=== PATIENT | female | born 1960 | race American Indian/Alaskan Native ===

== ENCOUNTER 2017-03-16 16:24 | Inpatient (IN) | payer MEDICAID ==
[2017-03-16 16:37] VITALS: BMI 31.7
[2017-03-16] MEDS ORDERED: Sodium Chloride 0.9% 1,000 ML IV ONE (17:32)
[2017-03-16 17:49] LABS: BASO # 0.1 K/uL (0.0-0.2); BASO % 0.3 % (0.0-2.0); HEMATOCRIT 40.8 % (34.0-47.0); LYMPH # 0.7 K/uL (1.0-4.3); MEAN CELL VOLUME 84.2 fL (81.0-99.0); MEAN CORPUSCULAR HEMOGLOBIN 27.7 pg (27.0-31.0); MEAN CORPUSCULAR HGB CONC 32.9 g/dL (33.0-37.0); MONO # 0.7 K/uL (0.0-0.8); PLATELET COUNT 277 K/uL (130-400); RED CELL DISTRIBUTION WIDTH 13.8 % (11.5-14.5); WHITE BLOOD COUNT 17.7 K/uL (4.8-10.8)
[2017-03-16 17:57] LABS: CHLORIDE 105 mmol/L (98-107); POTASSIUM 3.6 mmol/L (3.6-5.2); SODIUM 143 mmol/L (132-148)
[2017-03-16 17:59] LABS: AST/SGOT 27 U/L (14-36); BILIRUBIN,TOTAL 0.6 mg/dL (0.2-1.3); CARBON DIOXIDE 24 mmol/L (22-30); GFR AFRICAN-AMERICAN > 60
[2017-03-16 18:00] LABS: ALB/GLOB RATIO 1.1 (1.0-2.1); ALKALINE PHOSPHATASE 97 U/L (38-126); ALT/SGPT 38 U/L (9-52); BLOOD UREA NITROGEN 9 mg/dL (7-17); CALCIUM 9.8 mg/dl (8.6-10.4); GLUCOSE,RANDOM 102 mg/dL (65-105); TOTAL PROTEIN 8.7 g/dL (6.3-8.3)
[2017-03-16] MEDS ORDERED: Iohexol 240 (50 ml) PO ONE (18:02)
[2017-03-16] MEDS ORDERED: Iohexol 240 (50 ml) ONE (18:09)
--- NOTE | 2017-03-16 18:29 | C.PDOC ---
History Of Present Illness 56 year old female with no past medical history aside from a presents to the ED with complaints of diffuse cramping, sharp, persistent, mid-abdominal pain that began earlier today following taking a shower. Patient notes associated nausea and vomiting that are dry heaves with sputum production since she has not eaten. Patient states she went to the bathroom prior to showering and had a normal bowel movement. Since the shower she has had three bowel movements but denies diarrhea. She denies fever, chills, or other complaints at this time. Time Seen by Provider: 03/16/17 17:28 Chief Complaint (Nursing): Abdominal Pain History Per: Patient History/Exam Limitations: no limitations Onset/Duration Of Symptoms: Hrs, Sudden Onset, Persistent Current Symptoms Are (Timing): Still Present Location Of Pain/Discomfort: Diffuse Radiation Of Pain To:: None Quality Of Discomfort: Sharp, Cramping Associated Symptoms: Nausea, Vomiting. denies: Fever, Chills, Diarrhea, Constipation, Urinary Symptoms Recent travel outside of the [place]: No Abnormal Vaginal Bleeding: No Past Medical History Reviewed: Historical Data, Nursing Documentation, Vital Signs Vital Signs: Last Vital Signs Temp 99 F 03/16/17 16:37 Pulse 85 03/16/17 20:40 Resp 18 03/16/17 20:40 BP 135/63 03/16/17 20:40 Pulse Ox 100 03/16/17 21:05 Family History: States: Unknown Family Hx - Social History Hx Tobacco Use: No Hx Alcohol Use: No Hx Substance Use: No - Immunization History Hx Tetanus Toxoid Vaccination: No Hx Influenza Vaccination: Yes Hx Pneumococcal Vaccination: Yes Review Of Systems Constitutional: Negative for: Fever, Chills Cardiovascular: Negative for: Chest Pain, Palpitations Respiratory: Negative for: Cough, Shortness of Breath Gastrointestinal: Positive for: Nausea, Vomiting, Abdominal Pain. Negative for : Diarrhea, Constipation Physical Exam - Physical Exam Appears: Non-toxic, Other (Patient appears uncomfortable ) Skin: Warm, Dry Head: Atraumatic Eye(s): bilateral: Normal Inspection Oral Mucosa: Moist Neck: Supple Chest: Symmetrical, No Deformity Cardiovascular: Rhythm Regular, No Murmur Respiratory: Normal Breath Sounds, No Rales, No Rhonchi, No Wheezing Gastrointestinal/Abdominal: Bowel Sounds (tympanic ), Tenderness (diffusely tender), Distention, Other (no rigidity ) Neurological/Psych: Oriented x3 ED Course And Treatment - Laboratory Results Result Diagrams: 03/16/17 17:45 03/16/17 17:45 Lab Interpretation: Abnormal (WBC 17.7 with left shift) ECG: Interpreted By Me, Viewed By Me ECG Rhythm: Sinus Rhythm Rate From EC O2 Sat by Pulse Oximetry: 100 (room air ) Pulse Ox Interpretation: Normal - CT Scan/US Abdomen Pelvis CT Other Rad Studies (CT/US): Read By Radiologist, Radiology Report Reviewed CT/US Interpretation: EXAM: CT Abdomen and Pelvis With Intravenous Contrast. EXAM DATE/TIME: Exam ordered 03/16/2017 6:01 PM. CLINICAL HISTORY: 56 years old, female; Pain; Abdominal pain; Generalized. TECHNIQUE: Axial computed tomography images of the abdomen and pelvis with intravenous contrast. All CT. scans at this facility use one or more dose reduction techniques, viz.: automated exposure control;. ma/kV adjustment per patient size (including targeted exams where dose is matched to indication; i.e. head); or iterative reconstruction technique. Coronal and sagittal reformatted images were created and reviewed. CONTRAST: 100 mL of omnipaque 350 administered intravenously. COMPARISON:No relevant prior studies available. FINDINGS: Lower thorax: . ABDOMEN: Liver: 1 cm low density lesion is noted in the medial segment of the left lobe of the liver (series 3. image 52). Gallbladder and bile ducts: Unremarkable. No calcified stones. No ductal dilation. Pancreas: Unremarkable. No mass. No ductal dilation. Spleen: Unremarkable. No splenomegaly. Adrenals: Unremarkable. No mass. Kidneys and ureters: Unremarkable. No solid mass. No hydronephrosis. Stomach and bowel: There is scattered colonic diverticula. No obstruction. No mucosal thickening. Appendix: The appendix is enlarged. There is periappendiceal inflammation noted within the. surrounding fat. PELVIS: Bladder: Unremarkable. No mass. Reproductive: The uterus is absent. The ovaries are not seen as separate structures. ABDOMEN and PELVIS: Intraperitoneal space: Small amount of free fluid is seen in the pelvis. No free air. Bones/joints: There is a levoscoliosis of the lumbar spine with secondary degenerative changes. No. acute fracture. No dislocation. Soft tissues: There is a healed infraumbilical midline abdominal incision. A small amount of edema. is noted within the mesenteric fat. Vasculature: There are 2 left renal arteries. No abdominal aortic aneurysm. Lymph nodes: Unremarkable. No enlarged lymph nodes. IMPRESSION: 1. Acute appendicitis. 2. Scattered colonic diverticula. 3. 1 cm low density lesion within the medial segment left lobe liver not fully characterized. MRI might be helpful. Progress Note: Abdomen pelvis CT, obstructive series, UA, and CBC were ordered. Patient was given Morphine, Zofran, Iohexol, and IV fluids. Reevaluation Time: 21:20 Reassessment Condition: Improved - Physician Consult Information Time Consulting Physician Contacted: 21:20 Physician Contacted: Harmony Mar Outcome Of Conversation: Patient to be admitted for surgery for acute appendicitis. Disposition - Disposition Disposition: HOSPITALIZED Disposition Time: 21:20 Condition: STABLE - POA Present On Arrival: None - Clinical Impression Clinical Impression: Acute appendicitis - Scribe Statement The provider has reviewed the documentation as recorded by the Chaibmiky Tavares All medical record entries made by the Man were at my direction and personally dictated by me. I have reviewed the chart and agree that the record accurately reflects my personal performance of the history, physical exam, medical decision making, and the department course for this patient. I have also personally directed, reviewed, and agree with the discharge instructions and disposition.
[2017-03-16] MEDS ORDERED: Iohexol 350mg/ml 100 ML ONE (18:41)
[2017-03-16 19:11] LABS: RBC URINE 2 /hpf (0-3); URINE BACTERIA RARE (<OCC); URINE BILIRUBIN NEGATIVE (NEGATIVE); URINE BLOOD 1+ (NEGATIVE); URINE COLOR Yellow (YELLOW); URINE GLUCOSE (UA) NORMAL (Normal); URINE KETONE 2+ mg/dL (NEGATIVE); URINE LEUKOCYTE ESTERASE NEG Leu/uL (Negative); URINE PROTEIN 1+ mg/dL (NEGATIVE); URINE UROBILINOGEN NORMAL mg/dL (0.2-1.0); WBC URINE 1 /hpf (0-5)
[2017-03-16 19:15] LABS: NEUTROPHIL 96 % (50-75); TOTAL CELLS COUNTED 100
--- NOTE | 2017-03-16 20:45 | CT ---
EXAM: CT Abdomen and Pelvis With Intravenous Contrast EXAM DATE/TIME: Exam ordered 03/16/2017 6:01 PM CLINICAL HISTORY: 56 years old, female; Pain; Abdominal pain; Generalized TECHNIQUE: Axial computed tomography images of the abdomen and pelvis with intravenous contrast. All CT scans at this facility use one or more dose reduction techniques, viz.: automated exposure control; ma/kV adjustment per patient size (including targeted exams where dose is matched to indication; i.e. head); or iterative reconstruction technique. Coronal and sagittal reformatted images were created and reviewed. CONTRAST: 100 mL of omnipaque 350 administered intravenously. COMPARISON: No relevant prior studies available. FINDINGS: Lower thorax: . ABDOMEN: Liver: 1 cm low density lesion is noted in the medial segment of the left lobe of the liver (series 3 image 52). Gallbladder and bile ducts: Unremarkable. No calcified stones. No ductal dilation. Pancreas: Unremarkable. No mass. No ductal dilation. Spleen: Unremarkable. No splenomegaly. Adrenals: Unremarkable. No mass. Kidneys and ureters: Unremarkable. No solid mass. No hydronephrosis. Stomach and bowel: There is scattered colonic diverticula. No obstruction. No mucosal thickening. Appendix: The appendix is enlarged. There is periappendiceal inflammation noted within the surrounding fat. PELVIS: Bladder: Unremarkable. No mass. Reproductive: The uterus is absent. The ovaries are not seen as separate structures. ABDOMEN and PELVIS: Intraperitoneal space: Small amount of free fluid is seen in the pelvis. No free air. Bones/joints: There is a levoscoliosis of the lumbar spine with secondary degenerative changes. No acute fracture. No dislocation. Soft tissues: There is a healed infraumbilical midline abdominal incision. A small amount of edema is noted within the mesenteric fat. Vasculature: There are 2 left renal arteries. No abdominal aortic aneurysm. Lymph nodes: Unremarkable. No enlarged lymph nodes. IMPRESSION: 1. Acute appendicitis 2. Scattered colonic diverticula. 3. 1 cm low density lesion within the medial segment left lobe liver not fully characterized. MRI might be helpful.
--- NOTE | 2017-03-16 22:34 | CP.PCM.HP ---
History of Present Illness - History of Present Illness History of Present Illness: H&P Surgery- Dr. Mar 56F presented to [facility] ED with worsening abdominal pain originating in periumblical region migrating to RLQ that started this morning. Pain has been continuous with minimal relief. Associated nausea and NBNB vomiting. Denies F/C CP/SOB Diarrhea, numbness or tingling in the extremities. PMH: H.Pylori PSH: , Hysterectomy, colonoscopy, egd ALL: NKDA SocialHx: occasional etoh, recreational cocaine use. last dose 2 weeks ago. Denies tobacco, marijuana or other illicit drug use. PMD: Dr. Neena Cancino Present on Admission - Present on Admission Any Indicators Present on Admission: No Review of Systems - Review of Systems All systems: reviewed and no additional remarkable complaints except - Constitutional Constitutional: As Per HPI Past Patient History - Infectious Disease Hx of Infectious Diseases: None - Past Social History Smoking Status: Never Smoked - GASTROINTESTINAL Hx Gastroesophageal Reflux: Yes - PSYCHIATRIC Hx Substance Use: No - SURGICAL HISTORY Hx Surgeries: Yes Hx Section: Yes (20 yrs. ago) Hx Hysterectomy: Yes (5 yrs. ago) - ANESTHESIA Hx Anesthesia: Yes Hx Anesthesia Reactions: No Meds Allergies/Adverse Reactions: Allergies Allergy/AdvReac Type Severity Reaction Status Date / Time No Known Allergies Allergy Verified 03/16/17 16:36 Physical Exam - Constitutional Appears: Non-toxic, No Acute Distress - Head Exam Head Exam: ATRAUMATIC - Eye Exam Eye Exam: EOMI - ENT Exam ENT Exam: Mucous Membranes Moist - Respiratory Exam Respiratory Exam: NORMAL BREATHING PATTERN. absent: Accessory Muscle Use, Rales , Rhonchi, Wheezes - Cardiovascular Exam Cardiovascular Exam: +S1, +S2 - GI/Abdominal Exam GI & Abdominal Exam: Distended, Guarding, Rebound, Soft, Tenderness. absent: Firm, Hernia, Rigid Additional comments: +mcburney, rovsing, rebound, psoas - Extremities Exam Extremities exam: Negative for: calf tenderness, pedal edema - Neurological Exam Neurological exam: Alert, Oriented x3 - Skin Skin Exam: Normal Color, Warm Results - Vital Signs Recent Vital Signs: Last Vital Signs Temp 99 F 03/16/17 16:37 Pulse 85 03/16/17 20:40 Resp 18 03/16/17 20:40 BP 135/63 03/16/17 20:40 Pulse Ox 100 03/16/17 21:20 - Labs Result Diagrams: 03/16/17 17:45 03/16/17 17:45 Assessment & Plan - Assessment and Plan (Free Text) Assessment: 56F Acute Appendicitis Plan: - NPO - GI/DVTppx - IVF/Abx - pain control - AM labs - Plan for OR tomorrow - further recs per Dr. Zaid Smith PGY1
[2017-03-16] MEDS: Lactated Ringer's 1,000 ML IV SCH (22:44)
[2017-03-16] MEDS: Piperacillin/Tazobact 3.375 GM in Sodium Chloride 100 ML IVPB SCH (22:55)
[2017-03-17] MEDS: Piperacillin/Tazobact 3.375 GM in Sodium Chloride 100 ML IVPB SCH ×4 (03:46→21:20)
[2017-03-17] MEDS: Lactated Ringer's 1,000 ML IV SCH ×3 (05:45→22:05)
[2017-03-17 07:42] LABS: INR 1.2
[2017-03-17] MEDS ORDERED: Propofol 10 mg/ml Inj (20 ML) ONE (08:20)
[2017-03-17] MEDS ORDERED: Midazolam 2 MG/2 ML VIAL ONE (08:20)
--- NOTE | 2017-03-17 08:38 | RAD ---
PROCEDURE: Radiographs of the chest and abdomen (obstructive series) HISTORY: abd pain COMPARISON: Comparison chest 05/17/2016 TECHNIQUE: AP radiograph of the chest, with upright and supine radiographs of the abdomen. FINDINGS: CHEST: Lungs: . No consolidation Cardiovascular: Cardiomegaly -similar Symmetrical central pulmonary venous congestion similar to slightly increased. Pleura: No pleural fluid. No pneumothorax. Other findings: None. ABDOMEN AND PELVIS: Bowel: Unremarkable bowel gas pattern. No evidence of mechanical obstruction. Free air: None. Bones: Thoracolumbar dextroscoliosis. Right L4-5 marginal osteophytes Other findings: None. IMPRESSION: No pulmonary infiltrate. Chronic appearing mild pulmonary venous congestion -similar cardiomegaly No evidence of mechanical bowel obstruction.
[2017-03-17] MEDS ORDERED: Lactated Ringer's 1,000 ML IV ONE ×2 (08:40→09:55)
[2017-03-17] MEDS ORDERED: Succinylcholine Chloride 20 mg/ml Syr (5 ml) IV ONE (08:56)
[2017-03-17] MEDS ORDERED: Rocuronium 10 mg/ml (5 ml) ONE (08:56)
[2017-03-17] MEDS ORDERED: Lidocaine Hydrochloride 5 ML INJ ONE (08:56)
--- NOTE | 2017-03-17 10:10 | PCM.SURG1 ---
Surgeon's Initial Post Op Note - Surgeon's Notes Surgeon: Dr. Mar Electromagnet Crane Operator: PGY1 Pre-Operative Diagnosis: Acute Appendicitis Operative Findings: Iflammed appendix, phlegmon, multiple adhesions to the abdominal wall Post-Operative Diagnosis: Acute Appendectomy Operation Performed: Laparoscopic appendectomy covert to open Specimen/Specimens Removed: appendix Estimated Blood Loss: EBL {In ML}: 25 Blood Products Given: N/A Drains Used: No Drains Date of Surgery/Procedure: 03/17/17 Time of Surgery/Procedure: 08:45
[2017-03-17] MEDS ORDERED: Oxycodone/Acetaminophen 5/325 mg Tab PO PRN (10:19)
[2017-03-17] MEDS ORDERED: HYDROmorphone 0.5 mg/0.5 ml ISec IVP PRN (10:26)
[2017-03-17] MEDS ORDERED: Morphine 4 MG/ML VIAL IVP PRN (11:19)
--- NOTE | 2017-03-17 12:32 | CARD ---
APPROVED REPORT EKG Measurement Heart [id number] <Conclusion> Normal sinus rhythm Low voltage QRS Borderline ECG
[2017-03-17 16:33] VITALS: RESP 20
[2017-03-18 01:58] VITALS: TEMP 98.1
[2017-03-18] MEDS: Piperacillin/Tazobact 3.375 GM in Sodium Chloride 100 ML IVPB SCH (03:54)
[2017-03-18] MEDS: Lactated Ringer's 1,000 ML IV SCH (06:15)
--- NOTE | 2017-03-18 07:22 | CP.PCM.PN ---
Subjective - Date & Time of Evaluation Date of Evaluation: 03/18/17 Time of Evaluation: : Objective - Vital Signs/Intake and Output Vital Signs (last 24 hours): Temp Pulse Resp BP Pulse Ox 98.1 F 72 20 126/71 96 03/18/17 04:15 03/18/17 04:15 03/18/17 04:03/18/17 04:03/18/17 04:15 - Medications Medications: Current Medications Acetaminophen (Tylenol 325mg Tab) 650 mg PO Q6 PRN PRN Reason: Pain, Mild (1-3) Famotidine (Pepcid) 20 mg IVP Q12 MIA Last Admin: 03/17/17 21:20 Dose: 20 mg Hydromorphone HCl (Dilaudid) 0.5 mg IVP Q10M PRN PRN Reason: Pain, severe (8-10) Last Admin: 03/17/17 10:39 Dose: 0.5 mg Lactated Ringer's (Lactated Ringer's) 1,000 mls @ 125 mls/hr IV .Q8H IMA Last Admin: 03/17/17 22:05 Dose: 125 mls/hr Piperacillin Sod/Tazobactam (Sod 3.375 gm/ Sodium Chloride) 100 mls @ 200 mls/ hr IVPB Q6H MIA Last Admin: 03/18/17 03:54 Dose: 200 mls/hr Morphine Sulfate (Morphine) 4 mg IVP Q4 PRN PRN Reason: Pain, severe (8-10) Last Admin: 03/17/17 18:20 Dose: 4 mg Oxycodone/Acetaminophen (Percocet 5/325 Mg Tab) 1 tab PO Q4H PRN PRN Reason: Pain, moderate (4-7) Stop: 03/20/17 10:20 - Labs Labs: PT 13.2 SECONDS (9.7-12.2) H 03/17/17 07:28 INR 1.2 03/17/17 07:28 APTT 32 SECONDS (21-34) 03/17/17 07:28
--- NOTE | 2017-03-18 07:23 | CP.PCM.DIS ---
Provider - Provider Date of Admission: 03/16/17 21:21 Attending physician: Harmony Mar MD Time Spent in preparation of Discharge (in minutes): 35 Diagnosis - Discharge Diagnosis (1) Acute appendicitis Status: Acute Comment: see hospital course Hospital Course - Lab Results Lab Results: Most Recent Lab Values WBC 17.7 K/uL (4.8-10.8) H D 03/16/17 17:45 RBC 4.85 Mil/uL (3.80-5.20) 03/16/17 17:45 Hgb 13.4 g/dL (11.0-16.0) 03/16/17 17:45 Hct 40.8 % (34.0-47.0) 03/16/17 17:45 MCV 84.2 fL (81.0-99.0) 03/16/17 17:45 MCH 27.7 pg (27.0-31.0) 03/16/17 17:45 MCHC 32.9 g/dL (33.0-37.0) L 03/16/17 17:45 RDW 13.8 % (11.5-14.5) 03/16/17 17:45 Plt Count 277 K/uL (130-400) 03/16/17 17:45 MPV 8.0 fL (7.2-11.7) 03/16/17 17:45 Neut % (Auto) 91.7 % (50.0-75.0) H 03/16/17 17:45 Lymph % (Auto) 4.0 % (20.0-40.0) L 03/16/17 17:45 [place] % (Auto) 4.0 % (0.0-10.0) 03/16/17 17:45 Eos % (Auto) 0.0 % (0.0-4.0) 03/16/17 17:45 Baso % (Auto) 0.3 % (0.0-2.0) 03/16/17 17:45 Neut # 16.2 K/uL (1.8-7.0) H 03/16/17 17:45 Lymph # 0.7 K/uL (1.0-4.3) L 03/16/17 17:45 [place] # 0.7 K/uL (0.0-0.8) 03/16/17 17:45 Eos # 0.0 K/uL (0.0-0.7) 03/16/17 17:45 Baso # 0.1 K/uL (0.0-0.2) 03/16/17 17:45 Neutrophils % (Manual) 96 % (50-75) H 03/16/17 17:45 Lymphocytes % (Manual) 2 % (20-40) L 03/16/17 17:45 Monocytes % (Manual) 2 % (0-10) 03/16/17 17:45 Platelet Estimate Normal (NORMAL) 03/16/17 17:45 PT 13.2 SECONDS (9.7-12.2) H 03/17/17 07:28 INR 1.2 03/17/17 07:28 APTT 32 SECONDS (21-34) 03/17/17 07:28 Sodium 143 mmol/L (132-148) 03/16/17 17:45 Potassium 3.6 mmol/L (3.6-5.2) 03/16/17 17:45 Chloride 105 mmol/L (98-107) 03/16/17 17:45 Carbon Dioxide 24 mmol/L (22-30) 03/16/17 17:45 Anion Gap 18 (10-20) 03/16/17 17:45 BUN 9 mg/dL (7-17) 03/16/17 17:45 Creatinine 0.8 MG/DL (0.7-1.2) 03/16/17 17:45 Est GFR ( Amer) > 60 03/16/17 17:45 Est GFR (Non-Af Amer) > 60 03/16/17 17:45 Random Glucose 102 mg/dL (65-105) 03/16/17 17:45 Calcium 9.8 mg/dl (8.6-10.4) 03/16/17 17:45 Total Bilirubin 0.6 mg/dL (0.2-1.3) 03/16/17 17:45 AST 27 U/L (14-36) 03/16/17 17:45 ALT 38 U/L (9-52) 03/16/17 17:45 Alkaline Phosphatase 97 U/L (38-126) 03/16/17 17:45 Total Protein 8.7 g/dL (6.3-8.3) H 03/16/17 17:45 Albumin 4.6 g/dL (3.5-5.0) 03/16/17 17:45 Globulin 4.1 gm/dL (2.2-3.9) H 03/16/17 17:45 Albumin/Globulin Ratio 1.1 (1.0-2.1) 03/16/17 17:45 Lipase 114 U/L (23-300) 03/16/17 17:45 Urine Color Yellow (YELLOW) 03/16/17 19:02 Urine Clarity Clear (Clear) 03/16/17 19:02 Urine pH 5.0 (5.0-8.0) 03/16/17 19:02 Ur Specific [place] 1.023 (1.003-1.030) 03/16/17 19:02 Urine Protein 1+ mg/dL (NEGATIVE) H 03/16/17 19:02 Urine Glucose (UA) Normal mg/dL (Normal) 03/16/17 19:02 Urine Ketones 2+ mg/dL (NEGATIVE) H 03/16/17 19:02 Urine Blood 1+ (NEGATIVE) H 03/16/17 19:02 Urine Nitrate Negative (NEGATIVE) 03/16/17 19:02 Urine Bilirubin Negative (NEGATIVE) 03/16/17 19: Urine Urobilinogen Normal mg/dL (0.2-1.0) 03/16/17 19:02 Ur Leukocyte Esterase Neg Norberto/uL (Negative) 03/16/17 19:02 Urine WBC (Auto) 1 /hpf (0-5) 03/16/17 19:02 Urine RBC (Auto) 2 /hpf (0-3) 03/16/17 19:02 Ur Squamous Epith Cells 2 /hpf (0-5) 03/16/17 19:02 Urine Bacteria Rare (<OCC) 03/16/17 19:02 Urine HCG, Qual Negative (NEGATIVE) 03/17/17 07:40 - Hospital Course Hospital Course: 56 F presented to [facility] ED with worsening abdominal pain originating in periumblical region migrating to RLQ that started this morning. Pain has been continuous with minimal relief. Associated nausea and non-bloody/non-bilious vomiting. Denies fever/chills, CP, SOB Diarrhea, numbness/tingling. Patient was admitted for acute appendicitis. Patient was made NPO, started on IV fluids and IV antibiotics. She was also ordered anti-emetics and analgesics. On 03/17, patient went to OR for Laparoscopic appendectomy coverted to open with ZAC. She was found to have an inflammed appendix, phlegmon, and multiple adhesions to the abdominal wall. Patient tolerated the procedure well without complications. On 03/18, patient was tolerating diet, passing flatus, and ambulating without difficulty. At that time, patient was stable for discharge as per Dr. Mar. Follow up with Dr. Mar as outpatient in 1 week. (This is a summary of the hospital course, Please refer to EMR for more details) Discharge Exam - Head Exam Head Exam: ATRAUMATIC, NORMOCEPHALIC - Eye Exam Eye Exam: Normal appearance - ENT Exam ENT Exam: Mucous Membranes Moist - Respiratory Exam Respiratory Exam: NORMAL BREATHING PATTERN - Cardiovascular Exam Cardiovascular Exam: REGULAR RHYTHM - GI/Abdominal Exam GI & Abdominal Exam: Soft. absent: Distended, Firm, Guarding, Rebound, Rigid, Tenderness Additional comments: incision sites clean, dry, and intact - Neurological Exam Neurological exam: Alert, Oriented x3 - Psychiatric Exam Psychiatric exam: Normal Affect, Normal Mood - Skin Skin Exam: Dry, Intact, Normal Color, Warm Discharge Plan - Follow Up Plan Condition: STABLE Disposition: HOME/ ROUTINE Additional Instructions: Patient is stable for discharge to home as per Dr. Mar. Patient is to follow up with Dr. Mar as outpatient in 1 week. Patient may shower. Keep incision sites clean and dry. Refrain from strenuous activity. If there are any issues, please call Dr. Mar. Referrals: Harmony Mar MD [Staff Provider] -
[2017-03-18 08:07] VITALS: BP 121/72; PULSE 74; O2SAT 98
[2017-03-18 08:09] LABS: HEMATOCRIT 33.1 % (34.0-47.0); MEAN CELL VOLUME 84.8 fL (81.0-99.0); MEAN CORPUSCULAR HEMOGLOBIN 28.6 pg (27.0-31.0); MEAN CORPUSCULAR HGB CONC 33.8 g/dL (33.0-37.0); MEAN PLATELET VOLUME 7.9 fL (7.2-11.7); RED CELL DISTRIBUTION WIDTH 13.9 % (11.5-14.5); WHITE BLOOD COUNT 12.5 K/uL (4.8-10.8)
[2017-03-18 08:22] LABS: CHLORIDE 107 mmol/L (98-107); POTASSIUM 3.4 mmol/L (3.6-5.2); SODIUM 141 mmol/L (132-148)
[2017-03-18 08:25] LABS: ALKALINE PHOSPHATASE 76 U/L (38-126); ALT/SGPT 32 U/L (9-52); AST/SGOT 23 U/L (14-36); BILIRUBIN,TOTAL 0.6 mg/dL (0.2-1.3); BLOOD UREA NITROGEN 6 mg/dL (7-17); CALCIUM 8.8 mg/dl (8.6-10.4); CARBON DIOXIDE 27 mmol/L (22-30); GFR AFRICAN-AMERICAN > 60; GLUCOSE,RANDOM 109 mg/dL (65-105); TOTAL PROTEIN 6.8 g/dL (6.3-8.3)
--- NOTE | 2017-03-18 17:49 | OP ---
PROCEDURE DATE: 03/17/2017 SURGEON: Harmony Mar MD BLOCKER AND SEWER: Dr. Smith. TYPE OF ANESTHESIA: General. PREOPERATIVE DIAGNOSIS: Acute appendicitis. POSTOPERATIVE DIAGNOSIS: Acute appendicitis. PROCEDURE: Laparoscopy and open appendectomy. DESCRIPTION OF OPERATION: With the patient in the supine position under adequate general anesthesia, the abdomen was prepped and draped in usual sterile manner. The patient had a lower midline scar from a previous hysterectomy and Veress needle puncture was performed above the umbilicus with insufflation to 15 cm of water pressure of CO2 and a 10 mm laparoscopic trocar was inserted via a supraumbilical incision. The patient was noted to have significant adhesion to the left lower quadrant primarily, although the right side was relatively clear, and under direct vision, 5 and 12 mm trocars were inserted in the right mid abdomen and in the suprapubic area just to the right side of the midline. The appendix was visualized and it was noted to be acutely inflamed. Attempts were made to elevate the appendix, which was projected towards the left side and appeared to be somewhat adherent to the sigmoid colon, and due to the dense adhesion and the positioning of the trocars, it was felt that this could not be done safely without possible damage to the sigmoid colon, so the laparoscopic approach was abandoned. The pneumoperitoneum was released and the trocars were removed. A transverse incision was made in the right lower quadrant and taken down to the subcutaneous tissue. The external oblique fascia was divided and via a muscle-splitting approach, the posterior fascia and peritoneum were elevated and incised. Upon entering the peritoneal cavity, the appendix was easily palpated whereas has been previously visualized and with gentle finger dissection, the appendix was freed from the adherence to the other viscera and elevated into the wound. The mesoappendix was dissected and then clamped and divided and ligated with 2-0 Vicryl ties with a 2-0 Vicryl suture ligature placed near the base of the mesentery for additional control of the appendiceal artery. The appendix itself was then divided at the junction with the cecum using a TA-30 stapler. The stump was also oversewed with 2-0 chromic suture and the cecum was returned to the peritoneal cavity. The right gutter and pelvis were irrigated and suctioned, and closure was performed in 2 layers with running suture of 0 Vicryl. Subcutaneous tissue was irrigated and all incisions were closed with jose. Dry sterile dressings were applied. The patient tolerated the procedure well and transferred to recovery room in stable condition. Estimated blood loss for the procedure was 25 mL. Harmony Mar MD MTDSlade
== END 2017-03-18 09:18 | disposition home or self-care (01) | DRG 166 ==
LOC: C.ER 16:24 → C.9E 21:21 → C.6T 22:29
PROVIDERS: ADMIT Specialist; ATTEND Specialist
PROC: 0DTJ0ZZ Resection of Appendix, Open Approach (ICD-10-PCS; principal; 2017-03-16)
PROC: 0DJD4ZZ Inspection of Lower Intestinal Tract, Percutaneous Endoscopic Approach (ICD-10-PCS; 2017-03-16)
DX: K35.80 Unspecified acute appendicitis (principal); F14.90 Cocaine use, unspecified, uncomplicated; K21.9 Gastro-esophageal reflux disease without esophagitis; K66.0 Peritoneal adhesions (postprocedural) (postinfection)

== ENCOUNTER 2017-09-06 15:22 | Emergency (ER) | payer MEDICAID ==
[2017-09-06 15:22] VITALS: BMI 31.7
[2017-09-06 15:29] VITALS: RESP 18
[2017-09-06] MEDS ORDERED: Sodium Chloride 0.9% 1,000 ML IV ONE (16:15)
[2017-09-06] MEDS ORDERED: Sodium Chloride 0.9% 1,000 ML ONE (16:23)
--- NOTE | 2017-09-06 16:23 | C.PDOC ---
History Of Present Illness 57 y/o female presents to the ER complaining of dizziness which has been present for the past 1 day. Patient states that the dizziness began after she got out of her bed. Patient reports that she has dizziness primarily when she is standing or changing positions. Patient states that that she went to [facility] today have her BP checked. She found the BP was 100/60 which is her baseline BP. Patient notes that she feels nauseous and has a frontal headache. Otherwise , patient denies having any visual changes and vomiting. Time Seen by Provider: 09/06/17 16:03 Chief Complaint (Nursing): Dizziness/Lightheaded History Per: Patient History/Exam Limitations: no limitations Onset/Duration Of Symptoms: Days Current Symptoms Are (Timing): Still Present Associated Symptoms Preceding Syncopal Episode: Worse With Standing Severity: Moderate Past Medical History Reviewed: Historical Data, Nursing Documentation, Vital Signs Vital Signs: Last Vital Signs Temp 97.8 F 09/06/17 18:41 Pulse 75 09/06/17 18:41 Resp 18 09/06/17 18:41 BP 120/82 09/06/17 18:41 Pulse Ox 96 09/06/17 20:05 - Medical History PMH: No Chronic Diseases Denies: Chronic Kidney Disease Surgical History: Appendectomy - [facility] Procedures INSPECTION OF LOWER INTESTINAL TRACT, PERC ENDO APPROACH (03/16/17) RESECTION OF APPENDIX, OPEN APPROACH (03/16/17) Family History: States: No Known Family Hx - Social History Hx Tobacco Use: No Hx Alcohol Use: No Hx Substance Use: No - Immunization History Hx Tetanus Toxoid Vaccination: No Hx Influenza Vaccination: Yes Hx Pneumococcal Vaccination: Yes Review Of Systems Except As Marked, All Systems Reviewed And Found Negative. Constitutional: Negative for: Fever, Chills Eyes: Negative for: Vision Change Gastrointestinal: Positive for: Nausea. Negative for: Vomiting Neurological: Positive for: Headache, Dizziness Physical Exam - Physical Exam Appears: Non-toxic, No Acute Distress Skin: Normal Color, Warm Head: Atraumatic, Normacephalic Eye(s): bilateral: Normal Inspection Nose: Normal Oral Mucosa: Moist Neck: Normal, Normal ROM, Supple Chest: Symmetrical Cardiovascular: Rhythm Regular Respiratory: Normal Breath Sounds, No Accessory Muscle Use, No Rales, No Rhonchi , No Wheezing Gastrointestinal/Abdominal: Normal Exam, Bowel Sounds, Soft, No Tenderness Back: Normal Inspection Extremity: Normal ROM Neurological/Psych: Oriented x3, Normal Speech, Normal Motor, Normal Sensation ED Course And Treatment - Laboratory Results Result Diagrams: 09/06/17 16:24 09/06/17 16:24 ECG: Interpreted By Me, Viewed By Me ECG Rhythm: Sinus Rhythm Interpretation Of ECG: NSR with normal intervals, normal axis, non-specific T- wave changes Rate From EC O2 Sat by Pulse Oximetry: 96 (RA) Pulse Ox Interpretation: Normal - Other Rad CXR X-Ray: Viewed By Me, Read By Radiologist Interpretation: HISTORY: AMS. COMPARISON: Chest x-ray performed 05/17/16. TECHNIQUE: Chest, one view. FINDINGS: LUNGS: Mild pulmonary venous congestion. No focal consolidation. Please note that chest x-ray has limited sensitivity for the detection of pulmonary masses. PLEURA: No significant pleural effusion identified. No definite pneumothorax . CARDIOVASCULAR: Mild pulmonary venous congestion. Cardiomegaly. OSSEOUS STRUCTURES: No acute osseous abnormality identified. VISUALIZED UPPER ABDOMEN: Unremarkable. OTHER FINDINGS: None. IMPRESSION: Mild pulmonary venous congestion. Cardiomegaly. - CT Scan/US Head CT Other Rad Studies (CT/US): Read By Radiologist CT/US Interpretation: PROCEDURE: CT HEAD WITHOUT CONTRAST. HISTORY: AMS. COMPARISON: None available. TECHNIQUE: Axial computed tomography images were obtained through the head/brain without intravenous contrast. Radiation dose: Total exam DLP = 841.51 mGy-cm. This CT exam was performed using one or more of the following dose reduction techniques: Automated exposure control, adjustment of the mA and/or kV according to patient size, and/or use of iterative reconstruction technique. FINDINGS: HEMORRHAGE: No intracranial hemorrhage. BRAIN: Diffuse atrophy with prominence of the ventricles and sulci noted. No mass effect or edema. Mild scattered white matter hypodensities , which are nonspecific, but often seen with chronic microvascular ischemic disease. Please note that MRI with diffusion imaging is more sensitive in the detection of acute ischemic event. VENTRICLES: No hydrocephalus. CALVARIUM: Unremarkable. PARANASAL SINUSES: Mild mucosal thickening of the right sphenoid sinus. The remainder the visualized paranasal sinuses appear clear. MASTOID AIR CELLS: Unremarkable as visualized. No inflammatory changes. OTHER FINDINGS: None. IMPRESSION: No acute intracranial pathology identified. Findings as above. Medical Decision Making Medical Decision Making: Assessment: Dizziness Plan: --Labs --UA --CT-Head --CXR --Meclizine PO --Sudafed PO --IV Fluids On reevaluation patient reports improvement in symptoms and feels better. Provided prescriptions for Zofran, Sudafed, and Meclizine. Patient is stable for discharge home and will follow up with PMD in 2 days. Diagnosis: Dizziness, resolved Disposition Counseled Patient/Family Regarding: Studies Performed, Diagnosis, Need For Followup, Rx Given - Disposition Referrals: Karen Cancino MD [Non-Staff] - Disposition: HOME/ ROUTINE Disposition Time: 18:55 Condition: IMPROVED Additional Instructions: follow up with your doctor in 2 days call to make an appointment take medications as prescribed return to ER if symptoms worsens or progress Prescriptions: Meclizine [Meclizine*] 25 mg PO TID PRN #15 tab PRN Reason: Dizziness Ondansetron ODT [Zofran ODT] 4 mg PO TID PRN #12 odt PRN Reason: Nausea/Vomiting Pseudoephedrine HCl [Sudafed] 30 mg PO TID PRN #12 tablet PRN Reason: Dizziness Instructions: Vertigo (a Type of Dizziness) Forms: [facility] (Swiss), General Discharge Instructions - Clinical Impression Clinical Impression: Dizziness - Scribe Statement The provider has reviewed the documentation as recorded by the Man Davis Provider Attestation: All medical record entries made by the Man were at my direction and personally dictated by me. I have reviewed the chart and agree that the record accurately reflects my personal performance of the history, physical exam, medical decision making, and the department course for this patient. I have also personally directed, reviewed, and agree with the discharge instructions and disposition.
[2017-09-06 16:28] LABS: BASO % 0.5 % (0.0-2.0); EOS # 0.1 K/uL (0.0-0.7); EOS % 1.6 % (0.0-4.0); HEMOGLOBIN 12.7 g/dL (11.0-16.0); LYMPH % 14.7 % (20.0-40.0); MEAN CELL VOLUME 84.9 fL (81.0-99.0); MEAN CORPUSCULAR HEMOGLOBIN 28.5 pg (27.0-31.0); MEAN CORPUSCULAR HGB CONC 33.6 g/dL (33.0-37.0); MEAN PLATELET VOLUME 7.4 fL (7.2-11.7); MONO # 0.5 K/uL (0.0-0.8); NEUT # 5.3 K/uL (1.8-7.0); NEUT % 76.2 % (50.0-75.0); NRBC % 0.1 % (0.0-2.0); RBC 4.46 Mil/uL (3.80-5.20); RED CELL DISTRIBUTION WIDTH 13.8 % (11.5-14.5)
[2017-09-06 16:42] LABS: ALBUMIN 3.9 g/dL (3.5-5.0); ALT/SGPT 27 U/L (9-52); AST/SGOT 21 U/L (14-36); BLOOD UREA NITROGEN 12 mg/dL (7-17); CALCIUM 9.5 mg/dl (8.6-10.4); GFR AFRICAN-AMERICAN > 60; GFR NON-AFRICAN AMERICAN > 60
--- NOTE | 2017-09-06 17:02 | CT ---
PROCEDURE: CT HEAD WITHOUT CONTRAST. HISTORY: AMS COMPARISON: None available. TECHNIQUE: Axial computed tomography images were obtained through the head/brain without intravenous contrast. Radiation dose: Total exam DLP = 841.51 mGy-cm. This CT exam was performed using one or more of the following dose reduction techniques: Automated exposure control, adjustment of the mA and/or kV according to patient size, and/or use of iterative reconstruction technique. FINDINGS: HEMORRHAGE: No intracranial hemorrhage. BRAIN: Diffuse atrophy with prominence of the ventricles and sulci noted. No mass effect or edema. Mild scattered white matter hypodensities, which are nonspecific, but often seen with chronic microvascular ischemic disease. Please note that MRI with diffusion imaging is more sensitive in the detection of acute ischemic event. VENTRICLES: No hydrocephalus. CALVARIUM: Unremarkable. PARANASAL SINUSES: Mild mucosal thickening of the right sphenoid sinus. The remainder the visualized paranasal sinuses appear clear. MASTOID AIR CELLS: Unremarkable as visualized. No inflammatory changes. OTHER FINDINGS: None. IMPRESSION: No acute intracranial pathology identified. Findings as above.
--- NOTE | 2017-09-06 17:42 | RAD ---
HISTORY: AMS COMPARISON: Chest x-ray performed 05/17/16 TECHNIQUE: Chest, one view. FINDINGS: LUNGS: Mild pulmonary venous congestion. No focal consolidation. Please note that chest x-ray has limited sensitivity for the detection of pulmonary masses. PLEURA: No significant pleural effusion identified. No definite pneumothorax . CARDIOVASCULAR: Mild pulmonary venous congestion. Cardiomegaly. OSSEOUS STRUCTURES: No acute osseous abnormality identified. VISUALIZED UPPER ABDOMEN: Unremarkable. OTHER FINDINGS: None. IMPRESSION: Mild pulmonary venous congestion. Cardiomegaly.
[2017-09-06 18:30] LABS: SQUAMOUS EPITHIAL 1 /hpf (0-5); URINE BACTERIA RARE (<OCC); URINE BILIRUBIN NEGATIVE (NEGATIVE); URINE BLOOD NEGATIVE (NEGATIVE); URINE CLARITY Clear (Clear); URINE COLOR Yellow (YELLOW); URINE GLUCOSE (UA) NORMAL (Normal); URINE LEUKOCYTE ESTERASE NEG Leu/uL (Negative); URINE NITRATE NEGATIVE (NEGATIVE); URINE PROTEIN NEGATIVE (NEGATIVE); URINE UROBILINOGEN NORMAL mg/dL (0.2-1.0)
[2017-09-06 18:41] VITALS: BP 120/82; PULSE 75; TEMP 97.8
[2017-09-06 18:58] VITALS: O2SAT 96
--- NOTE | 2017-09-08 15:57 | CARD ---
APPROVED REPORT EKG Measurement Heart [id number] <Conclusion> Normal sinus rhythm Normal ECG
== END 2017-09-06 19:08 | disposition home or self-care (01) ==
LOC: C.ER 15:22
DX: R42 Dizziness and giddiness (principal)
CPT/HCPCS: 70450; 71045; 80053; 81001; 84484; 85025; 96361; 96374; 96375; 99285; J2405; J7040